=== PATIENT | male | born 1975 | race American Indian/Alaskan Native ===

== ENCOUNTER 2018-01-13 23:08 | Emergency (ER) | payer SELFPAY ==
[2018-01-14] MEDS ORDERED: NORVASC PO ONE (01:13)
[2018-01-14 01:44] LABS: Basophils % (Auto) 0.6 % (0.0-1.8); Eosinophils # (Auto) 0.2 K/mm3 (0.0-0.4); Hematocrit 42.6 % (35.5-45.6); Hemoglobin 14.1 gm/dl (11.8-15.2); Lymphocytes # (Auto) 2.3 K/mm3 (1.2-5.4); Lymphocytes % (Auto) 27.6 % (13.4-35.0); Mean Corpuscular HGB Conc 33 % (32-34); Mean Corpuscular Hemoglobin 26 pg (28-32); Mean Corpuscular Volume 79 fl (84-94); Monocytes # (Auto) 0.9 K/mm3 (0.0-0.8); Monocytes % (Auto) 10.6 % (0.0-7.3); Platelet Count 327 K/mm3 (140-440); Red Cell Distribution Width 16.4 % (13.2-15.2)
[2018-01-14 01:57] LABS: BUN/Creatinine Ratio 16; Blood Urea Nitrogen 19 mg/dL (9-20); Calcium 9.7 mg/dL (8.4-10.2); Hemolysis Index 18
--- NOTE | 2018-01-14 03:55 | Cat Scan Report ---
FINAL REPORT EXAM: CT HEAD/BRAIN WO CON HISTORY: Headache COMPARISON: None available. TECHNIQUE: Axial images obtained skull base through vertex. FINDINGS: No acute intracranial hemorrhage, midline shift or pathologic extra axial fluid collection. There are chronic infarcts involving the superior medial moderate frontal lobe measuring 2.7 x 2.0 centimeters and left frontal white matter measuring 2.8 x 1.5 centimeters. Chronic appearing lacunar infarct of the right caudate head measuring 5 x 5 millimeters. Remainder casper-white differentiation maintained. Normal configuration of ventricular system. Visualized ocular globes are grossly unremarkable. Calvarium is intact. Visualized para-nasal sinuses and mastoid air cells are clear. Mild calcifications vertebral arteries and carotid siphons. IMPRESSION: No grossly acute intracranial abnormality. 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
[2018-01-14 06:49] VITALS: BP 162/109
--- NOTE | 2018-01-14 07:53 | Emergency Department Report ---
HPI - General Chief Complaint: Headache Time Seen by Provider: 01/14/18 07:36 - HPI HPI: Room 6 The patient is a 42-year-old male presenting with chief complaint of headache. The patient says yesterday he developed intermittent left frontal headache. Patient denies nausea/vomiting, fever or preceding trauma. Patient states he is waiting for his sabianist fill his prescription for amlodipine but he has been compliant otherwise with his clonidine. The patient was administered amlodipine prior to my arrival and his blood pressure has improved. Subsequently the patient states he no longer has a headache. Location: Head Duration: [See above] Quality: Headache Severity: Currently 0/10 Modifying factors: [see above] Context: [see above] Mode of transportation: Unknown ED Past Medical Hx - Past Medical History Hx Hypertension: Yes Hx Psychiatric Treatment: Yes (Depression) Additional medical history: High Cholesterol, - Surgical History Additional Surgical History: Hernia repair - Family History Family history: no significant - Social History Smoking Status: Never Smoker Substance Use Type: None (denies illicit drug use) - Medications Home Medications: Home Medications Medication Instructions Recorded Confirmed Last Taken Type Aspirin 325 mg PO DAILY 01/14/18 01/14/18 Unknown History Coreg CR 20 mg PO DAILY 01/14/18 01/14/18 Unknown History Crestor 20 mg PO DAILY 01/14/18 01/14/18 Unknown History Effient 10 mg PO DAILY 01/14/18 01/14/18 Unknown History FLUoxetine 20 mg PO DAILY 01/14/18 01/14/18 Unknown History Hydrochlorothiazide 12.5 mg PO DAILY 01/14/18 01/14/18 Unknown History amLODIPine 5 mg PO DAILY 01/14/18 01/14/18 Unknown History cloNIDine 0.2 mg PO BID 01/14/18 01/14/18 Unknown History ED Review of Systems ROS: Stated complaint: HEADACHE Other details as noted in HPI Constitutional: denies: fever Eyes: denies: eye pain ENT: denies: throat pain Cardiovascular: denies: chest pain Gastrointestinal: denies: abdominal pain, nausea, vomiting Genitourinary: denies: dysuria Musculoskeletal: denies: back pain Neurological: headache Physical Exam - Physical Exam Vital Signs: Vital Signs 01/14/18 01/14/18 01/14/18 00:34 01:14 05:08 Temperature 99 F 98.9 F Pulse Rate 86 84 74 Respiratory 19 Rate Blood Pressure 182/115 182/115 Blood Pressure 155/105 [Left] O2 Sat by Pulse 98 Oximetry 01/14/18 06:00 Temperature Pulse Rate Respiratory Rate Blood Pressure 162/109 Blood Pressure [Left] O2 Sat by Pulse 99 Oximetry Physical Exam: GENERAL: The patient is well-developed well-nourished male lying on stretcher not appearing to be in acute distress. [] HEENT: Normocephalic. Atraumatic. Extraocular motions are intact. Patient has moist mucous membranes. NECK: Supple. No meningitic signs are noted. Trachea midline CHEST/LUNGS: Clear to auscultation. There is no respiratory distress noted. HEART/CARDIOVASCULAR: Regular. There is no tachycardia. There is no gallop rub or murmur. ABDOMEN: Abdomen is soft, nontender. Patient has normal bowel sounds. There is no abdominal distention. SKIN: There is no rash. There is no edema. There is no diaphoresis. NEURO: The patient is awake, alert, and oriented. The patient is cooperative. The patient has no focal neurologic deficits. The patient has normal speech. Cranial nerves II through XII grossly intact, no drift MUSCULOSKELETAL: There is no evidence of acute injury. ED Course Vital Signs 01/14/18 01/14/18 01/14/18 00:34 01:14 05:08 Temperature 99 F 98.9 F Pulse Rate 86 84 74 Respiratory 19 Rate Blood Pressure 182/115 182/115 Blood Pressure 155/105 [Left] O2 Sat by Pulse 98 Oximetry 01/14/18 06:00 Temperature Pulse Rate Respiratory Rate Blood Pressure 162/109 Blood Pressure [Left] O2 Sat by Pulse 99 Oximetry ED Medical Decision Making - Lab Data Result diagrams: 01/14/18 01:03 01/14/18 01:03 Laboratory Tests 01/14/18 01/14/18 01:03 01:03 WBC 8.5 RBC 5.40 H Hgb 14.1 Hct 42.6 MCV 79 L MCH 26 L MCHC 33 RDW 16.4 H Plt Count 327 Lymph % (Auto) 27.6 [place] % (Auto) 10.6 H Eos % (Auto) 2.0 Baso % (Auto) 0.6 Lymph # 2.3 [place] # 0.9 H Eos # 0.2 Baso # 0.0 Seg Neutrophils % 59.2 Seg Neutrophils # 5.0 Sodium 139 Potassium 4.0 Chloride 98.5 Carbon Dioxide 28 Anion Gap 17 BUN 19 Creatinine 1.2 Estimated GFR > 60 BUN/Creatinine Ratio 16 Glucose 116 H Calcium 9.7 - EKG Data -: EKG Interpreted by Me EKG shows normal: sinus rhythm Rate: normal - EKG Data When compared to previous EKG there are: previous EKG unavailable Interpretation: nonspecific ST-T wave elaine (T-wave inversions in leads V2, V3), other (right bundle branch block) - Radiology Data Radiology results: report reviewed (CT head), image reviewed (CT head) [facility] [address] [id number] Cat Scan Report Signed Patient: SIMEON BENITEZ MR#: [id number] : 1974 Acct:[id number] Age/Sex: 42 / M ADM Date: 01/13/18 Loc: ED Attending Dr: Ordering Physician: OMAR MAY MD Date of Service: 01/14/18 Procedure(s): CT head/ brain wo con Accession Number(s): [id number] cc: ED MD LALO FINAL REPORT EXAM: CT HEAD/BRAIN WO CON HISTORY: Headache COMPARISON: None available. TECHNIQUE: Axial images obtained skull base through vertex. FINDINGS: No acute intracranial hemorrhage, midline shift or pathologic extra axial fluid collection. There are chronic infarcts involving the superior medial moderate frontal lobe measuring 2.7 x 2.0 centimeters and left frontal white matter measuring 2.8 x 1.5 centimeters. Chronic appearing lacunar infarct of the right caudate head measuring 5 x 5 millimeters. Remainder casper-white differentiation maintained. Normal configuration of ventricular system. Visualized ocular globes are grossly unremarkable. Calvarium is intact. Visualized para-nasal sinuses and mastoid air cells are clear. Mild calcifications vertebral arteries and carotid siphons. IMPRESSION: No grossly acute intracranial abnormality. 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 Transcribed By: MADYSON Dictated By: KEV KELLEY MD Electronically Authenticated By: KEV KELLEY MD Signed Date/Time: 01/14/18350 DD/ 0 TD/TT: 01/14/18350 - Differential Diagnosis hypertensive urgency, ICH, migraine Critical care attestation.: If time is entered above; I have spent that time in minutes in the direct care of this critically ill patient, excluding procedure time. ED Disposition Clinical Impression: Hypertension, Headache Disposition: DC-01 TO HOME OR SELFCARE Is pt being admited?: No Does the pt Need Aspirin: No Condition: Stable Instructions: Hypertension (ED) Additional Instructions: Return to the emergency department immediately should you develop worsening symptoms, fever, inability to tolerate food or liquid or any other concerns. Referrals: PRIMARY CARE, [Primary Care Provider] - 3-5 Days [facility] [Outside] - 3-5 Days Time of Disposition: 07:55
== END 2018-01-14 08:19 | disposition home or self-care (01) ==
LOC: ED 23:08
DX: I10 Essential (primary) hypertension (principal); E78.00 Pure hypercholesterolemia, unspecified
CPT/HCPCS: 36415; 70450; 80048; 85025; 93005; 93010; 99284